=== PATIENT | female | born 1950 | race Caucasian/White ===

== ENCOUNTER 2022-08-22 16:21 | Emergency (ER) | payer MEDICARE, OTHER ==
[~2022-08-22 16:21] MED LIST: Iopamidol-370 76% 500 ML 1 ML ONE
[2022-08-22 16:49] LABS: #Basophils 0.1 thou/uL (0.0-0.2); #Lymphocytes 1.5 thou/uL (1.20-3.40); #Monocytes 0.5 thou/uL (0.11-0.59); %Basophils 0.7 % (0.0-1.0); %Eosinophils 0.3 % (0.0-10.0); %Lymphocytes 14.9 % (21.0-51.0); %Monocytes 5.3 % (0.0-10.0); %Neutrophils 78.8 % (42.0-75.0); Hemoglobin 15.3 g/dL (12.0-16.0); Mean Corpuscular HGB CONC 33.4 g/dL (32.0-36.0); Mean Corpuscular Volume 95.8 fl (78.0-98.0); Mean Platelet Volume 10.1 fL (7.4-10.4); Platelet Count 202 10x3/uL (130-400); Red Blood Cell (RBC) Count 4.79 mill/uL (4.20-5.40); White Blood Cell (WBC) Count 10.1 10x3/uL (4.8-10.8)
[2022-08-22 17:12] LABS: ALT (SGPT) 16 U/L (8-55); AST (SGOT) 23 U/L (5-34); Albumin 4.4 g/dL (3.4-4.8); Alkaline Phosphatase 79 U/L (40-110); Anion Gap 16 mmol/L (10-20); BUN (Urea Nitrogen) 18 mg/dL (9.8-20.1); Calc. Creatinine Clearance 0 mL/min (70-130); Calcium 9.8 mg/dL (7.8-10.44); Carbon Dioxide 23 mmol/L (23-31); Chloride 102 mmol/L (98-107); Estimated GFR 80; Globulin 2.9 g/dL (2.4-3.5); Glucose 98 mg/dL (83-110); Potassium 3.9 mmol/L (3.5-5.1); Protein, Total 7.3 g/dL (5.8-8.1); Sodium 137 mmol/L (136-145)
[2022-08-22 18:36] LABS: Bilirubin Negative (Negative); Blood, Urine Negative (Negative); Clarity Clear (Clear); Glucose, Urine (Dipstick) Normal (Negative); Ketone, Urine 20 mg/dL (Negative); Leukocyte Negative Leu/uL (Negative); Nitrite Negative (Negative); Protein, Urine (Dipstick) Negative (Neg-Trace); Specific Gravity, Urine 1.012 (1.002-1.036); Urobilinogen Normal mg/dL (Less than 2)
[2022-08-22] MEDS ORDERED: Metoprolol Tartrate 5 MG/5 ML VIAL ONE (19:08)
== END 2022-08-22 21:05 | disposition home or self-care (01) ==
LOC: ERS 16:21
DX: I10 Essential (primary) hypertension (principal); R00.2 Palpitations
CPT/HCPCS: 36415; 71045; 71275; 80053; 81003; 84443; 84484; 85025; 93005; Q9967

== ENCOUNTER 2022-08-29 13:27 | Outpatient (CLI) | payer MEDICARE, OTHER ==
[2022-08-29 15:30] LABS: INR-International Normal Ratio 0.9; Prothrombin Time 9.8 sec (9.5-12.1)
[2022-08-29 15:33] LABS: #Basophils 0.1 10x3/uL (0.0-0.2); #Eosinphils 0.2 10x3/uL (0.0-0.5); #Monocytes 0.5 10x3/uL (0.0-1.1); #Neutrophils 6.9 10x3/uL (1.5-8.4); %Eosinophils 1.6 % (0.0-6.0); %Lymphocytes 19.9 % (18.0-47.0); %Monocytes 5.6 % (0.0-10.0); %Neutrophils 71.7 % (40.0-75.0); Hemoglobin 15.1 g/dL (12.0-15.5); Mean Corpuscular HGB CONC 33.1 g/dL (32.0-36.0); Mean Corpuscular Hemoglobin 31.4 pg (27.0-33.0); Mean Corpuscular Volume 94.8 fl (81.6-98.3); Mean Platelet Volume 13.5 fl (7.4-10.4); Platelet Count 261 10x3/uL (150-450); RBC Distribution Width 12.3 % (11.5-14.5); Red Blood Cell (RBC) Count 4.81 10x6/uL (3.90-5.03); White Blood Cell (WBC) Count 9.6 10x3/uL (3.5-10.5)
[2022-08-29 15:49] LABS: Anion Gap 14 mmol/L (10-20); BUN (Urea Nitrogen) 22 mg/dL (9.8-20.1); Calc. Creatinine Clearance 0 mL/min (70-130); Calcium 9.5 mg/dL (7.8-10.44); Carbon Dioxide 27 mmol/L (23-31); Chloride 104 mmol/L (98-107); Estimated GFR 75; Glucose 105 mg/dL (83-110); Potassium 4.6 mmol/L (3.5-5.1); Sodium 140 mmol/L (136-145)
== END 2022-08-29 13:28 | disposition home or self-care (01) ==
LOC: LABBT 13:27
PROVIDERS: ATTEND Orthopaedic Surgery
DX: Z01.818 Encounter for other preprocedural examination (principal); M17.11 Unilateral primary osteoarthritis, right knee
CPT/HCPCS: 80048; 85025; 85610; 87081; 93005; 93010

== ENCOUNTER 2022-08-30 08:25 | Observation (INO) | payer MEDICARE, OTHER ==
[2022-08-26 15:45] VITALS: BMI 20.3
[2022-08-30] MEDS ORDERED: Sodium Chloride 0.9% 100 ML ONE ×2 (09:07→10:34)
[2022-08-30] MEDS ORDERED: Tranexamic Acid 1,000 MG/10 ML VIAL ONE (09:07)
[2022-08-30] MEDS ORDERED: Vancomycin 1 GM/200 ML (FROZEN) BAG ONE (09:07)
[2022-08-30] MEDS ORDERED: Bupivacaine PF 0.5% 30 ML VIAL ONE ×2 (09:08→14:38)
[2022-08-30] MEDS ORDERED: Fentanyl 100 MCG/2 ML VIAL ONE ×2 (09:08→12:27)
[2022-08-30] MEDS ORDERED: Midazolam HCl 2 mg/2 ml Vial ONE (09:08)
[2022-08-30 10:13] LABS: SARS-CoV-2 NAA Rapid Test Not Detected (NotDetected)
[2022-08-30] MEDS ORDERED: Bupivacaine HCl 0.5%/Epinephrine 1:200,000/PF 30 ml Vial ONE (10:13)
[2022-08-30] MEDS ORDERED: Fentanyl 100 MCG/2 ML VIAL IV PRN (10:21)
[2022-08-30] MEDS ORDERED: Promethazine HCl 25 MG/ML VIAL IM PRN ×2 (10:30→10:43)
[2022-08-30] MEDS ORDERED: HYDROcodone/Acetaminophen 10/325 mg Tablet PO PRN ×2 (10:30)
[2022-08-30] MEDS ORDERED: Zolpidem Tartrate 5 MG TAB PO PRN ×2 (10:30→10:43)
[2022-08-30] MEDS ORDERED: Ondansetron PF 4 MG/2 ML Vial IVP PRN ×2 (10:30→10:43)
[2022-08-30] MEDS ORDERED: traMADol HCl 50 MG TAB PO PRN (10:30)
[2022-08-30] MEDS ORDERED: Ropivacaine HCl/PF 250 ML in Premix Bag 1 BAG NERVE BLCK SCH (10:30)
[2022-08-30] MEDS ORDERED: CEFAZOLIN 2 GM VIAL ONE (10:34)
[2022-08-30] MEDS ORDERED: fentaNYL PF 100 MCG/2 ML SYRINGE ONE (10:36)
[2022-08-30] MEDS ORDERED: Acetaminophen 325 MG TAB PO PRN (10:43)
[2022-08-30] MEDS ORDERED: diphenhydrAMINE 25 MG CAP PO PRN (10:43)
[2022-08-30] MEDS ORDERED: PROPOFOL 200 MG/20 ML VIAL ONE (10:58)
[2022-08-30] MEDS ORDERED: Dexamethasone 20 MG/5 ML VIAL ONE (10:58)
[2022-08-30] MEDS ORDERED: Ondansetron PF 4 MG/2 ML Vial ONE (10:58)
[2022-08-30] MEDS ORDERED: Lidocaine 1% PF 5 ML VIAL ONE (10:58)
[2022-08-30] MEDS ORDERED: Ketorolac Tromethamine 30 MG/ML VIAL ONE (12:27)
[2022-08-30] MEDS ORDERED: Ketorolac Tromethamine 30 MG/ML VIAL IVP SCH (12:45)
[2022-08-30] MEDS: Ketorolac Tromethamine 30 MG/ML VIAL IVP SCH ×2 (12:47→17:46)
[2022-08-30] MEDS: traMADol HCl 50 MG TAB PO PRN (14:57)
[2022-08-30] MEDS: Sodium Chloride 0.9% 1,000 ML IV SCH ×2 (14:58→20:18)
[2022-08-30] MEDS: CEFAZOLIN 2 GM in Sodium Chloride 0.9% 100 ML IVPB SCH (17:46)
[2022-08-30] MEDS: Aspirin 81 mg Enteric Coated Tablet PO SCH (19:52)
[2022-08-30] MEDS: Senokot S 8.6-50 MG TAB PO SCH (19:55)
[2022-08-30] MEDS: Ferrous Gluconate 324 MG TAB PO SCH (19:56)
[2022-08-30] MEDS ORDERED: Acetaminophen/Codeine 30-300mg Tablet PO PRN ×2 (20:36→20:37)
[2022-08-31] MEDS: Ketorolac Tromethamine 30 MG/ML VIAL IVP SCH ×3 (00:53→10:43)
[2022-08-31] MEDS: CEFAZOLIN 2 GM in Sodium Chloride 0.9% 100 ML IVPB SCH (00:54)
[2022-08-31 05:23] LABS: #Basophils 0.1 thou/uL (0.0-0.2); #Lymphocytes 1.6 thou/uL (1.20-3.40); #Monocytes 2.1 thou/uL (0.11-0.59); %Basophils 0.4 % (0.0-1.0); %Eosinophils 0.2 % (0.0-10.0); %Lymphocytes 10.4 % (21.0-51.0); %Monocytes 13.2 % (0.0-10.0); %Neutrophils 75.8 % (42.0-75.0); Hemoglobin 11.9 g/dL (12.0-16.0); Mean Corpuscular HGB CONC 32.7 g/dL (32.0-36.0); Mean Corpuscular Hemoglobin 31.8 pg (27.0-31.0); Mean Corpuscular Volume 97.2 fl (78.0-98.0); Mean Platelet Volume 10.6 fL (7.4-10.4); Platelet Count 187 10x3/uL (130-400); Red Blood Cell (RBC) Count 3.75 mill/uL (4.20-5.40); White Blood Cell (WBC) Count 15.8 10x3/uL (4.8-10.8)
[2022-08-31] MEDS: Sodium Chloride 0.9% 1,000 ML IV SCH (05:24)
[2022-08-31 05:47] LABS: Anion Gap 10 mmol/L (10-20); BUN (Urea Nitrogen) 16 mg/dL (9.8-20.1); Calc. Creatinine Clearance 63 mL/min (70-130); Carbon Dioxide 26 mmol/L (23-31); Chloride 103 mmol/L (98-107); Potassium 3.6 mmol/L (3.5-5.1); Sodium 135 mmol/L (136-145)
[2022-08-31 05:48] LABS: Calcium 8.5 mg/dL (7.8-10.44); Estimated GFR 84; Glucose 102 mg/dL (83-110); Magnesium 1.9 mg/dL (1.6-2.6); Phosphorus 2.6 mg/dL (2.3-4.7)
[2022-08-31] MEDS: traMADol HCl 50 MG TAB PO PRN ×2 (05:57→06:55)
[2022-08-31] MEDS ORDERED: Ondansetron ODT 4 MG TAB PO PRN (08:26)
[2022-08-31] MEDS: Senokot S 8.6-50 MG TAB PO SCH (08:52)
[2022-08-31] MEDS: Ferrous Gluconate 324 MG TAB PO SCH (08:52)
[2022-08-31] MEDS: Aspirin 81 mg Enteric Coated Tablet PO SCH (08:53)
[2022-08-31 08:58] VITALS: BP 112/85; TEMP 98.4
[2022-08-31] MEDS ORDERED: Estrogens, Conjugated 0.3 MG TAB PO SCH ×2 (09:00)
[2022-08-31] MEDS ORDERED: Calcium Carbonate 600 MG TAB PO SCH ×2 (09:00)
[2022-08-31] MEDS ORDERED: hydrOXYzine 10 MG TAB PO SCH (09:00)
[2022-08-31] MEDS ORDERED: Non-Formulary Item 1 EACH (Multivitamin [Multivitamin] 1 EACH Tablet) PO SCH (09:00)
[2022-08-31] MEDS ORDERED: Multivitamin W/ Minerals 1 TAB PO SCH (09:00)
[2022-08-31] MEDS ORDERED: Ropivacaine 0.2% 550 ML 550 ML NERVE BLCK SCH (09:45)
== END 2022-08-31 11:10 | disposition home or self-care (01) ==
LOC: SDC 08:25 → SURG A 13:39 → SJJU 14:05
PROVIDERS: ADMIT Orthopaedic Surgery; ATTEND Orthopaedic Surgery
PROC: 0SRC0J9 Replacement of Right Knee Joint with Synthetic Substitute, Cemented, Open Approach (ICD-10-PCS; principal; 2022-08-30)
DX: M17.11 Unilateral primary osteoarthritis, right knee (principal); I45.2 Bifascicular block; Z86.16 Personal history of COVID-19; Z79.1 Long term (current) use of non-steroidal anti-inflammatories (NSAID); Z79.890 Hormone replacement therapy; Z79.899 Other long term (current) drug therapy; Z88.0 Allergy status to penicillin; Z88.2 Allergy status to sulfonamides; Z20.822 Contact with and (suspected) exposure to COVID-19
CPT/HCPCS: 20985; 27447; 73560; 80048; 83735; 84100; 84443; 85025; 93005; 97110; 97116 ×2; 97530 ×2; A4306; C1713; C1776; J3370; U0002; 93010; 96374; 96375; 96376; G0378; J1100; J1885; J2250; J2405; J2704; J2795; J3010; J3490; S0020